=== PATIENT | female | born 1960 | race Caucasian/White ===

== ENCOUNTER 2024-05-28 22:12 | Emergency (ER) | payer OTHER ==
[~2024-05-28] VITALS: Ht 165.1 cm; Wt 83.5 kg
[2024-05-28 22:17] VITALS: BP 101/56; PULSE 80; RESP 16; TEMP 98; O2SAT 97
[2024-05-28 23:20] VITALS: BP 104/57; PULSE 77; RESP 18; TEMP 97.7; O2SAT 96
== END 2024-05-29 00:50 | disposition home or self-care (01) ==
LOC: MED 22:12
DX: E11.9 Type 2 diabetes mellitus without complications (principal); T38.3X5A Adverse effect of insulin and oral hypoglycemic [antidiabetic] drugs, initial encounter; Z85.3 Personal history of malignant neoplasm of breast; Y92.89 Other specified places as the place of occurrence of the external cause
CPT/HCPCS: 82948; 99282